=== PATIENT | female | born 1940 | race African-American/Black ===

== ENCOUNTER 2016-10-21 00:55 | Observation (INO) | payer MEDICARE ==
[~2016-10-21] VITALS: Ht 167.6 cm; Wt 85.3 kg
[~2016-10-21 00:55] MED LIST: CALC-906 PO; DEXA4TAB PO; DOCU-150 PO; FERR-63 PO; FURO40TA5 PO; GABA-531 PO; LENA20CA PO; LEVO5TAB13 PO; LIDO30CR TP; LOSA1TAB34 PO; MELO-106 PO; METH2.5T PO; METH4TAB17 PO; MULT-1146 PO; ONDA8TAB PO; PILO5TAB17 PO; POTA10TA15 PO; SIMV20TA6 PO; TRAM50TA3 PO; TRIA15OI8 TP; VITA1CAP64 PO; WARF5TAB73 PO
[2016-10-21] MEDS ORDERED: PANTOPRAZOLE SODIUM 40 MG/VIAL IV NR (01:56)
[2016-10-21] MEDS ORDERED: SODIUM CHLORIDE 0.9% 1,000 ML IV ONE (01:56)
[2016-10-21] MEDS ORDERED: ONDANSETRON HCL 4MG/2ML VIAL IV NR (01:56)
[2016-10-21 02:30] LABS: BASOPHILS % 0.4 % (0.0-2.0); EOSINOPHILS % 1.3 % (0.0-5.0); HEMATOCRIT. 29.5 % (36.0-48.0); HEMOGLOBIN. 9.3 g/dL (12.0-16.0); LYMPHOCYTES % 16.4 % (20.0-50.0); MEAN CORPUSCULAR HEMOGLOBIN 27.3 pg (28.0-32.0); MEAN CORPUSCULAR VOLUME 86.2 fL (81.0-99.0); MEAN PLATELET VOLUME 5.7 fl (7.4-10.4); MONOCYTES % 6.2 % (2.0-8.0); NEUTROPHILS % 75.7 % (40.0-76.0); PLATELET 417 x1000/uL (130-400); RED BLOOD CELL COUNT 3.42 mill/uL (4.2-5.4); RED CELL DISTRIBUTION WIDTH 17.7 % (11.6-14.6)
[2016-10-21 02:43] LABS: INR 2.6; PARTIAL THROMBOPLASTIN TIME 36.4 sec (23.4-31.0); PROTHROMBIN TIME 26.8 sec (9.4-11.6)
[2016-10-21 02:44] LABS: CARBON DIOXIDE 32 mEq/L (21-32); CHLORIDE 99 mEq/L (98-107); TROPONIN I < 0.02 ng/mL (0.00-0.04)
[2016-10-21 08:00] VITALS: BP 146/63
[2016-10-21 08:35] VITALS: BP 146/63
[2016-10-21] MEDS ORDERED: GABA-531 PO (09:34)
[2016-10-21] MEDS ORDERED: HYDR-4094 PO (09:41)
[2016-10-21] MEDS ORDERED: CLONIDINE 0.1MG TABLET PO PRN (11:30)
[2016-10-21] MEDS ORDERED: IPRATROPIUM/ALBUTEROL 0.5-3(2.5)MG/3ML NEB INH PRN (11:30)
[2016-10-21] MEDS ORDERED: HYDROCODONE/ACETAMINOPHEN 5/325MG TABLET PO PRN (11:30)
[2016-10-21] MEDS ORDERED: ACETAMINOPHEN 325MG TABLET PO PRN (11:30)
[2016-10-21 12:00] VITALS: BP 160/68
[2016-10-21 16:00] VITALS: BP_SYST 127; BP_SYST 132; BP_SYST 137; BP_DIAS 59; BP_DIAS 69; BP_DIAS 80
[2016-10-21 16:53] LABS: CARBON DIOXIDE 29 mEq/L (21-32); CHLORIDE 102 mEq/L (98-107); CREATINE KINASE 67 IU/L (26-192); TROPONIN I < 0.02 ng/mL (0.00-0.04)
[2016-10-21 20:00] VITALS: BP 130/65
[2016-10-22] VITALS: BP 114/60
[2016-10-22 01:22] LABS: CREATINE KINASE 59 IU/L (26-192); TROPONIN I < 0.02 ng/mL (0.00-0.04)
[2016-10-22 04:00] VITALS: BP 133/68
[2016-10-22 07:48] LABS: BASOPHILS % 1.2 % (0.0-2.0); EOSINOPHILS % 3.4 % (0.0-5.0); HEMATOCRIT. 26.6 % (36.0-48.0); HEMOGLOBIN. 8.7 g/dL (12.0-16.0); MEAN CORPUSCULAR HEMOGLOBIN 27.7 pg (28.0-32.0); MEAN CORPUSCULAR VOLUME 84.5 fL (81.0-99.0); MEAN PLATELET VOLUME 6.2 fl (7.4-10.4); MONOCYTES % 6.8 % (2.0-8.0); NEUTROPHILS % 62.6 % (40.0-76.0); PLATELET 393 x1000/uL (130-400); RED BLOOD CELL COUNT 3.14 mill/uL (4.2-5.4); RED CELL DISTRIBUTION WIDTH 17.8 % (11.6-14.6)
[2016-10-22 08:00] VITALS: BP 126/59
[2016-10-22 08:55] LABS: CARBON DIOXIDE 28 mEq/L (21-32); CHLORIDE 104 mEq/L (98-107); HDL CHOLESTEROL 45 mg/dL (40-59); LDL CHOLESTEROL 73 mg/dL (5-100); T4 FREE 1.04 ng/dL (0.76-1.46)
[2016-10-22 12:00] VITALS: BP 132/61
[2016-10-22] MEDS ORDERED: POTASSIUM CHLORIDE 20MEQ TABLET SR PO SCH (13:15)
[2016-10-22 14:48] VITALS: BP 126/59
[2016-10-22 16:00] VITALS: BP 143/72
== END 2016-10-22 18:55 | disposition home or self-care (01) ==
LOC: ER 00:55 → INTOOBSV 04:24 → 8WST 04:24 → EDBEDREQ 04:28 → ENRESERV 07:12
PROVIDERS: ADMIT Internal Medicine; ATTEND Internal Medicine
DX: R53.1 Weakness (principal); I11.0 Hypertensive heart disease with heart failure; I50.9 Heart failure, unspecified; E66.9 Obesity, unspecified; D64.9 Anemia, unspecified; C90.00 Multiple myeloma not having achieved remission; M06.9 Rheumatoid arthritis, unspecified; J44.9 Chronic obstructive pulmonary disease, unspecified; Z95.2 Presence of prosthetic heart valve; S81.809D Unspecified open wound, unspecified lower leg, subsequent encounter; X58.XXXD Exposure to other specified factors, subsequent encounter; Z79.01 Long term (current) use of anticoagulants
CPT/HCPCS: 36415; 71010; 80048; 80053; 80061; 82550; 83605; 83690; 84439; 84443; 84484; 85025; 85610; 85730; 86850; 86900; 86901; 87040; 93005; 96361; 96374; 96375; 99285; C9113; G0378; J2405; J7030